=== PATIENT | male | born 1960 | race Caucasian/White ===

== ENCOUNTER 2020-06-11 12:18 | Emergency (ER) | payer BC, MEDICAID, MEDICARE, OTHER ==
[~2020-06-11 12:18] MED LIST: FOLI1TAB86 PO; MULTTAB4 PO; PROT1TAB2 PO; VITA100T2 PO; other
[2020-06-11] MEDS ORDERED: FUROSEMIDE 40MG/4ML VIAL (J1940) IV ONE (13:15)
[2020-06-11] MEDS: ASPIRIN 81 MG CHEW TABLET PO ONE ×2 (13:26→14:04)
[2020-06-11 13:41] LABS: ABG pH (ARTERIAL) 7.408 UNITS (7.350-7.450)
[2020-06-11 13:42] LABS: ABG BASE EXCESS -1.8 (-2.0-2.0); ABG HCO3 22.3 MEQ/L (22.0-26.0); ABG O2 SATURATION 96.4 % (95.0-99.0); ABG PARTIAL PRESSURE CO2 36.2 mmHg (35.0-45.0); ABG PARTIAL PRESSURE O2 81.6 mmHg (75.0-100.0); ABG STANDARD HCO3 22.9 MEQ/L (22.0-26.0); ABG TOTAL CO2 23.4 MEQ/L (22.0-29.0)
[2020-06-11 13:46] LABS: BASO % 0.9 % (0.0-1.0); EOS # 0.1 10^3/uL (0.0-0.5); EOS % 2.2 % (0.0-3.0); HEMATOCRIT 41.6 % (42.0-52.0); HEMOGLOBIN 13.5 g/dl (13.5-17.5); LYMPH # 0.5 10^3/uL (1.5-5.0); LYMPH % 11.6 % (24.0-44.0); MEAN CORPUSCULAR HEMOGLOBIN 30.4 pg (27.0-33.0); MEAN CORPUSCULAR HGB CONC 32.5 g/dl (32.0-36.5); MEAN CORPUSCULAR VOLUME 93.7 fl (80.0-96.0); MONO # 0.2 10^3/uL (0.0-0.8); MONO % 4.7 % (0.0-5.0); NEUTROPHILS # 3.7 10^3/uL (1.5-8.5); NEUTROPHILS % 80.2 % (36.0-66.0); RED BLOOD COUNT 4.44 10^6/uL (4.30-6.10); WHITE BLOOD COUNT 4.7 10^3/uL (4.0-10.0)
[2020-06-11 13:58] LABS: INR 1.13; PROTHROMBIN TIME 14.8 SECONDS (11.8-14.0)
[2020-06-11 14:17] LABS: ALBUMIN 2.6 GM/DL (3.2-5.2); ALT/SGPT 59 U/L (12-78); BILIRUBIN,DIRECT 0.7 MG/DL (0.0-0.2); BILIRUBIN,TOTAL 1.2 MG/DL (0.2-1.0); BLOOD UREA NITROGEN 8 MG/DL (7-18); CALCIUM LEVEL 7.8 MG/DL (8.5-10.1); CARBON DIOXIDE LEVEL 26 MEQ/L (21-32); CHLORIDE LEVEL 107 MEQ/L (98-107); CK-MB VALUE MASS 2.5 NG/ML (<3.6); CPK CREATINE PHOSPHOKINASE 156 U/L (39-308); CREATININE FOR GFR 0.64 MG/DL (0.70-1.30); GLOMERULAR FILTRATION RATE > 60.0 (>56); GLUCOSE, FASTING 123 MG/DL (70-100); NT-PRO BNP 51 PG/ML (<125); POTASSIUM SERUM 3.6 MEQ/L (3.5-5.1); SODIUM LEVEL 139 MEQ/L (136-145); TOTAL PROTEIN 6.6 GM/DL (6.4-8.2); TROPONIN I < 0.02 NG/ML (< 0.10)
[2020-06-11 14:29] LABS: PLATELET COUNT, AUTOMATED 80 10^3/uL (150-450)
--- NOTE | 2020-06-11 14:54 | REPVR ---
PROCEDURE INFORMATION: Exam: XR Chest, 1 View Exam date and time: 06/11/2020 2:44 PM Age: 60 years old Clinical indication: Shortness of breath; Additional info: Dyspnea/cough TECHNIQUE: Imaging protocol: XR of the chest Views: Frontal portable upright view of the chest. COMPARISON: No relevant prior studies available. FINDINGS: Tubes, catheters and devices: EKG leads are present overlying the chest. Lungs: The pulmonary vasculature is normal. The lungs are clear bilaterally. Pleural space: No pleural effusion. No pneumothorax. Heart/Mediastinum: Borderline cardiomegaly. Vasculature: Moderate aortic arch atherosclerotic calcification without ectasia. Bones/joints: No acute abnormality identified. IMPRESSION: No acute cardiopulmonary abnormality identified. Electronically signed by: David Terry On 06/11/2020 14:54:56 PM
[2020-06-11 15:00] VITALS: BP 155/78
[2020-06-11] MEDS ORDERED: PRED10TA2 PO (15:09)
[2020-06-11] MEDS ORDERED: PROAAER10 INH (15:15)
--- NOTE | 2020-06-28 10:02 | ECGEPIP ---
[facility] - ED Test Date: 2020-06-11 Pat Name: ELENA BEAL Department: Room: - Gender: Male Certifed Refrigeration Operator: ANTIONETTE : 1960 Requested By: DAVID MEDEIROS Order Number: [id number] Reading MD: Alisha Choudhury Measurements Intervals [place] Rate: 68 P: 22 [place]: 161 QRS: 1 QRSD: 99 T: 26 QT: 421 QTc: 450 Interpretive Statements SINUS RHYTHM WITH OCCASIONAL SUPRAVENTRICULAR PREMATURE COMPLEXES PROBABLE BASELINE ARTIFACT AFFECTS INTERPRETATION SEE SCANNED DOWNTIME REPORT
== END 2020-06-11 15:29 | disposition home or self-care (01) ==
LOC: EDBD 12:18 → M ED 12:18
DX: J44.1 Chronic obstructive pulmonary disease with (acute) exacerbation (principal); J00 Acute nasopharyngitis [common cold]; I10 Essential (primary) hypertension; F17.210 Nicotine dependence, cigarettes, uncomplicated; Z79.51 Long term (current) use of inhaled steroids; Z79.899 Other long term (current) drug therapy
CPT/HCPCS: 36600; 71045; 80048; 80076; 82550; 82553; 82803; 83605; 83880; 85025; 85049; 85055; 85610; 87486; 87581; 87633; 87798; 93005; 93041; 94760; 96374; 99285; J1940

== ENCOUNTER 2020-07-29 15:34 | Emergency (ER) | payer MEDICAID, MEDICARE ==
[~2020-07-29] VITALS: Ht 177.8 cm; Wt 123.6 kg
[~2020-07-29 15:34] MED LIST changes: +PRED10TA2 PO; +PROAAER10 INH
--- NOTE | 2020-07-29 17:06 | REPVR ---
PROCEDURE INFORMATION: Exam: XR Chest, 2 Views Exam date and time: 07/29/2020 4:10 PM Age: 60 years old Clinical indication: Cough and shortness of breath; Additional info: Dyspnea/cough TECHNIQUE: Imaging protocol: XR of the chest Views: 2 views. COMPARISON: CR PORTABLE CHEST X-RAY 06/11/2020 2:41 PM FINDINGS: Lungs: Tiny bilateral pulmonary nodules. Further evaluation with CT scan of the chest is recommended. No pulmonary consolidation. Pleural space: No pleural effusion or pneumothorax. Heart/Mediastinum: The cardiomediastinal silhouette and pulmonary vasculature are within normal limits. Bones/joints: Mild degenerative spondylosis of the thoracic spine IMPRESSION: Tiny bilateral pulmonary nodules. Further evaluation with CT scan of the chest is recommended. Electronically signed by: Foreign Donovan On 07/29/2020 17:06:28 PM
[2020-07-29 17:29] LABS: BASO % 0.7 % (0.0-1.0); EOS # 0.2 10^3/uL (0.0-0.5); EOS % 4.6 % (0.0-3.0); HEMATOCRIT 42.6 % (42.0-52.0); LYMPH # 0.9 10^3/uL (1.5-5.0); LYMPH % 22.5 % (24.0-44.0); MEAN CORPUSCULAR HEMOGLOBIN 30.6 pg (27.0-33.0); MEAN CORPUSCULAR HGB CONC 32.9 g/dl (32.0-36.5); MONO # 0.3 10^3/uL (0.0-0.8); MONO % 6.8 % (0.0-5.0); NEUTROPHILS # 2.6 10^3/uL (1.5-8.5); NEUTROPHILS % 63.9 % (36.0-66.0); RED BLOOD COUNT 4.58 10^6/uL (4.30-6.10); WHITE BLOOD COUNT 4.1 10^3/uL (4.0-10.0)
[2020-07-29 17:31] LABS: PLATELET COUNT, AUTOMATED 69 10^3/uL (150-450)
[2020-07-29 17:55] LABS: ALBUMIN 2.9 GM/DL (3.2-5.2); ALT/SGPT 43 U/L (12-78); BILIRUBIN,DIRECT 0.7 MG/DL (0.0-0.2); BILIRUBIN,TOTAL 1.9 MG/DL (0.2-1.0); BLOOD UREA NITROGEN 11 MG/DL (7-18); CALCIUM LEVEL 8.9 MG/DL (8.5-10.1); CARBON DIOXIDE LEVEL 29 MEQ/L (21-32); CHLORIDE LEVEL 104 MEQ/L (98-107); CK-MB VALUE MASS 1.7 NG/ML (<3.6); CPK CREATINE PHOSPHOKINASE 144 U/L (39-308); CREATININE FOR GFR 0.78 MG/DL (0.70-1.30); GLOMERULAR FILTRATION RATE > 60.0 (>56); GLUCOSE, FASTING 86 MG/DL (70-100); MB/CK RELATIVE INDEX 1.18 (< OR =4); NT-PRO BNP 70 PG/ML (<125); POTASSIUM SERUM 3.7 MEQ/L (3.5-5.1); SODIUM LEVEL 139 MEQ/L (136-145); TOTAL PROTEIN 7.7 GM/DL (6.4-8.2); TROPONIN I < 0.02 NG/ML (< 0.10)
[2020-07-29] MEDS ORDERED: dexameTHASONE 20MG/5ML VIAL (J1100 PER 1MG) IV ONE (18:15)
[2020-07-29] MEDS: COMBIVENT RESPIMAT 100-20MCG INHALER 4GM INH SCH ×3 (18:27→18:55)
[2020-07-29] MEDS ORDERED: FUROSEMIDE 20MG/2ML VIAL (J1940) IV ONE (18:30)
[2020-07-29] MEDS ORDERED: ISOVUE-370 76% 100ML VIAL As Ordered ONE (19:57)
[2020-07-29] MEDS ORDERED: ACETAMINOPHEN TAB 650MG DOSE (2X325MG) PO ONE (20:00)
--- NOTE | 2020-07-29 20:56 | ECGEPIP ---
[facility] - ED Test Date: 2020-07-29 Pat Name: ELENA BEAL Department: Room: - Gender: Male Medical Typist: JGregory : 1960 Requested By: NORMA Villavicencio Order Number: [id number] Reading MD: Alisha Choudhury Measurements Intervals [place] Rate: 76 P: 6 [place]: 150 QRS: -22 QRSD: 108 T: 28 QT: 403 QTc: 455 Interpretive Statements SINUS RHYTHM BORDERLINE LEFT AXIS DEVIATION NSTTW abnormalities Electronically Signed on 07-29-2020 20:55:50 EDT by Alisha Choudhury
[2020-07-29] MEDS ORDERED: PROAAER10 INH (23:34)
[2020-07-29] MEDS ORDERED: PRED20TA PO (23:34)
[2020-07-29] MEDS ORDERED: LASI20TA3 PO (23:34)
[2020-07-29 23:53] VITALS: BP 168/84
--- NOTE | 2020-08-02 08:29 | ED PDOC ---
Post-Departure Follow-Up radiology report faxed to kiran Willoughby (Alisha Choudhury MD) Post-Departure Follow-Up kiran willoughby faxed formal report of cta chest for fu mlg (Kendall Arredondo MD) Alisha Choudhury MD Aug 02, 2020 08:29 Kendall Arredondo MD Aug 06, 2020 13:04
--- NOTE | 2020-08-04 11:56 | REP ---
CT PULMONARY ANGIOGRAM (REPEAT DICTATION) HISTORY: Shortness of breath. Preliminary report is provided at the time of the exam by virtual radiology. CT CONTRAST DOSE: 75 mL of intravenous Isovue-[address] PULMONARY ANGIOGRAPHIC FINDINGS: There is good opacification of the pulmonary arterial tree, and there is no CT evidence of pulmonary embolus. No evidence of aortic dissection or aneurysm. Vascular calcification is seen and an aberrant right subclavian artery is noted incidentally. No hilar or mediastinal mass or adenopathy is observed. The heart is mildly prominent. Left coronary artery vascular calcification is observed. The left lobe of the liver is somewhat hypertrophied and a macronodular liver surface is seen, question cirrhosis. Cholelithiasis is noted, and there are tubular structures in the left upper quadrant consistent with portal venous collaterals in the left upper quadrant of the abdomen. Granulomatous calcifications are seen in the lung bhatia. There is a 6 mm noncalcified nodular density in the left lower lobe posteriorly in the posterior lung sulcus. No other significant lung nodule is appreciated. There are old healed rib fractures on the left. No bony destructive lesion is seen. There is an ill-defined 14 mm hypervascular area in the right lobe of the liver, nonspecific. Spleen is slightly prominent. IMPRESSION: No evidence of pulmonary embolus. Aberrant right subclavian artery. Old granulomatous disease. 6 mm pulmonary nodule left lower lobe noncalcified. Follow up recommended. Six month follow up chest CT suggested. Evidence of hepatic cirrhosis with 14 mm hypervascular area in the right lobe. Left upper quadrant portal venous collaterals. Cholelithiasis. MTDD
== END 2020-07-29 23:55 | disposition home or self-care (01) ==
LOC: EDBD 15:34 → M ED 15:34
DX: J44.1 Chronic obstructive pulmonary disease with (acute) exacerbation (principal); R14.0 Abdominal distension (gaseous); I11.0 Hypertensive heart disease with heart failure; Z87.891 Personal history of nicotine dependence; Z79.899 Other long term (current) drug therapy
CPT/HCPCS: 71046; 71275; 80048; 80076; 82550; 82553; 83880; 84443; 85025; 85049; 85055; 93005; 93041; 94640; 94760; 96374; 96375; 99284; J1100; J1940; Q9967